=== PATIENT | female | born 1970 | race Caucasian/White ===

== ENCOUNTER 2018-12-17 11:06 | Emergency (ER) | payer MEDICAID ==
[~2018-12-17] VITALS: Ht 154.9 cm; Wt 102.1 kg
[~2018-12-17 11:06] MED LIST: BEN10 PO; ESOM40EC PO
[2018-12-17 11:21] VITALS: BP 129/73
--- NOTE | 2018-12-17 11:28 | NUR ---
Patient ambulated to bed 6
--- NOTE | 2018-12-17 11:58 | NUR ---
pt bib slef with c/o sudden onset of epigastric pain radiating to upper back with n/v x today last bm this am , denies straining. pt states to have vomiting x8 today. pain at rt lower quadrant pain 10/10 at this time. denies any fever, chills, nausea . hx of dm, takes meds for dm at home unable to recall at this time. aaox4, resp even and non labored. er md to see the pt. will continue to monitor pt. hx--dm, gastritis
[2018-12-17] MEDS: FAMOTIDINE 20 MG TAB PO ONE (12:53)
[2018-12-17] MEDS: ALUMINUM HYD/MAG/SIMETHICONE 30 ML UDC PO ONE (12:53)
[2018-12-17] MEDS: ONDANSETRON 4 MG ODT PO ONE (12:54)
[2018-12-17 13:08] LABS: BASOPHILS # (AUTO) 0.1 K/uL (0.00-0.22); BASOPHILS % (AUTO) 0.4 % (0.0-2.0); EOSINOPHILS % (AUTO) 0.2 % (0.0-4.0); HEMATOCRIT 38.5 % (36-48); HEMOGLOBIN 12.5 g/dL (12.0-16.0); LYMPHOCYTES # (AUTO) 1.8 K/uL (2.5-16.5); LYMPHOCYTES % (AUTO) 13.6 % (20.5-51.1); MEAN CORPUSCULAR HEMOGLOBIN 28 pg (27-31); MEAN CORPUSCULAR HGB CONC 33 g/dL (33-37); MONOCYTES # (AUTO) 0.5 K/uL (0.8-1.0); MONOCYTES % (AUTO) 3.9 % (1.7-9.3); NEUTROPHILS # (AUTO) 10.8 K/uL (1.8-7.7); NEUTROPHILS % (AUTO) 81.9 % (42.2-75.2); PLATELET COUNT (AUTO) 284 K/uL (140-450); RED BLOOD CELL COUNT(AUTO) 4.48 MIL/uL (4.20-5.40); RED CELL DISTRIBUTION WIDTH 13.4 % (11.6-13.7); WHITE BLOOD COUNT (AUTO) 13.2 K/uL (4.8-10.8)
[2018-12-17 13:17] LABS: ANION GAP 12.3 (8-16); CARBON DIOXIDE 28.4 mmol/L (21-32); CREATININE 0.7 mg/dL (0.6-1.3); POTASSIUM 4.7 mmol/L (3.5-5.1)
[2018-12-17 13:22] LABS: ALBUMIN 3.8 g/dL (3.4-5.0); TOTAL BILIRUBIN 0.3 mg/dL (0.0-1.0)
--- NOTE | 2018-12-17 14:09 | NUR ---
checked on pt. resting comfortably in her bed. pain /10. states pain lowered with pain meds.
[2018-12-17 15:38] VITALS: BP 132/65
--- NOTE | 2018-12-17 15:40 | NUR ---
Patient discharged with v/s stable. Written and verbal after care instructions given and explained. Patient alert, oriented and verbalized understanding of instructions. Ambulatory with steady gait. All questions addressed prior to discharge. ID band removed. Patient advised to follow up with PMD. Rx of zofran odt and omeprazole 40 mg given. Patient educated on indication of medication including possible reaction and side effects. Opportunity to ask questions provided and answered.
== END 2018-12-17 15:40 | disposition home or self-care (01) ==
LOC: MED 11:06
DX: K29.70 Gastritis, unspecified, without bleeding (principal); I10 Essential (primary) hypertension; E11.9 Type 2 diabetes mellitus without complications; Z79.899 Other long term (current) drug therapy
CPT/HCPCS: 36415; 80053; 81002; 81025; 82948; 83690; 84484; 85025; 93005; 99284; Q0162